=== PATIENT | male | born 2005 | race Asian ===

== ENCOUNTER 2023-07-04 17:34 | Emergency (ER) | payer SELFPAY ==
[~2023-07-04] VITALS: Ht 167.6 cm; Wt 99.8 kg
[2023-07-04 18:31] VITALS: BP 117/89; PULSE 84; RESP 18; TEMP 98.5; O2SAT 100
[2023-07-04] MEDS ORDERED: IBUP-2213 PO (19:56)
[2023-07-04] MEDS ORDERED: PROM118S5 PO (19:56)
== END 2023-07-04 20:09 | disposition home or self-care (01) ==
LOC: MED 17:34
DX: M54.2 Cervicalgia (principal); Z79.899 Other long term (current) drug therapy; Z79.1 Long term (current) use of non-steroidal anti-inflammatories (NSAID)
CPT/HCPCS: 99284

== ENCOUNTER 2023-09-12 01:19 | Emergency (ER) | payer SELFPAY ==
[~2023-09-12] VITALS: Ht 167.6 cm; Wt 102.5 kg
[~2023-09-12 01:19] MED LIST: IBUP-2213 PO; PROM118S5 PO
[2023-09-12 01:25] VITALS: BP 115/75; PULSE 78; RESP 17; TEMP 98; O2SAT 99
[2023-09-12 03:40] VITALS: BP 115/75; PULSE 78; RESP 17; TEMP 98; O2SAT 99
[2023-09-12 03:43] LABS: BASOPHILS % (AUTO) 0.5 % (0.0-2.0); EOSINOPHILS # (AUTO) 0.1 K/uL (0-0.4); EOSINOPHILS % (AUTO) 1.4 % (0.0-4.0); HEMATOCRIT 43.1 % (36-52); LYMPHOCYTES # (AUTO) 2.5 K/uL (2.0-11.5); LYMPHOCYTES % (AUTO) 28.1 % (20.5-51.1); MEAN CORPUSCULAR HEMOGLOBIN 31 pg (27-31); MEAN CORPUSCULAR HGB CONC 35 g/dL (33-37); MONOCYTES # (AUTO) 0.7 K/uL (0.8-1.0); MONOCYTES % (AUTO) 8.4 % (1.7-9.3); NEUTROPHILS # (AUTO) 5.5 K/uL (1.8-7.7); NEUTROPHILS % (AUTO) 61.6 % (42.2-75.2); PLATELET COUNT (AUTO) 134 K/uL (140-450); RED CELL DISTRIBUTION WIDTH 13.8 % (11.6-13.7); WHITE BLOOD COUNT (AUTO) 8.9 K/uL (4.5-11.0)
[2023-09-12 03:53] LABS: ANION GAP 11.6 (8-16); CALCIUM 8.8 mg/dL (8.5-10.1); CARBON DIOXIDE 29.6 mmol/L (21-32); POTASSIUM 4.2 mmol/L (3.5-5.1)
[2023-09-12] MEDS ORDERED: NAPR-1704 PO (04:17)
[2023-09-12] MEDS ORDERED: HYDR25CA1 PO (04:17)
== END 2023-09-12 04:36 | disposition home or self-care (01) ==
LOC: MED 01:19
DX: R07.89 Other chest pain (principal); F41.9 Anxiety disorder, unspecified; Z79.899 Other long term (current) drug therapy
CPT/HCPCS: 36415; 71045; 80048; 85025; 93005; 99285; Q0092